=== PATIENT | male | born 1990 | race African-American/Black ===

== ENCOUNTER 2021-07-07 00:16 | Emergency (ER) | payer MEDICAID ==
[~2021-07-07] VITALS: Ht 167.6 cm; Wt 74.0 kg
[2021-07-07 04:33] LABS: CHLORIDE 108 mEq/L (98-107)
[2021-07-07 04:37] LABS: BASOPHILS % 0.8 % (0.0-2.0); EOSINOPHILS % 5.5 % (0.0-5.0); HEMATOCRIT. 43.1 % (42.0-52.0); HEMOGLOBIN. 14.1 g/dL (14.0-18.0); LYMPHOCYTES % 24.2 % (20.0-50.0); MEAN CORPUSCULAR VOLUME 85.6 fL (80.0-94.0); MEAN PLATELET VOLUME 8.1 fl (7.4-10.4); MONOCYTES % 10.1 % (2.0-8.0); NEUTROPHILS % 59.4 % (40.0-76.0); PLATELET 251 x1000/uL (130-400); RED BLOOD CELL COUNT 5.04 mill/uL (4.7-6.1); RED CELL DISTRIBUTION WIDTH 14.9 % (11.6-14.6)
[2021-07-07 04:38] LABS: ETHANOL BLOOD < 10 mg/dL
[2021-07-07 05:51] LABS: *COCAINE SCREEN URINE NEGATIVE (NEGATIVE); METHADONE URINE SCREEN NEGATIVE (NEGATIVE); OPIATES URINE SCREEN NEGATIVE (NEGATIVE); PHENCYCLIDINE URINE SCREEN NEGATIVE (NEGATIVE)
[2021-07-07 05:52] LABS: *AMPHETAMINES SCREEN URINE NEGATIVE (NEGATIVE); *BARBITURATES SCREEN URINE NEGATIVE (NEGATIVE); *BENZODIAZEPINES SCREEN URINE NEGATIVE (NEGATIVE); CANNABINOID URINE SCREEN PRESUMTIVE POSITIVE (NEGATIVE)
[2021-07-07] MEDS: RISPERIDONE 1MG TABLET PO SCH ×2 (09:31→21:15)
[2021-07-07] MEDS: FLUOXETINE HCL 10 MG CAPSULE PO SCH (09:31)
[2021-07-07] MEDS ORDERED: LORAZEPAM 1MG TABLET PO ONE (18:00)
[2021-07-07] MEDS ORDERED: NICOTINE 14MG PATCH TD ONE (19:45)
[2021-07-07] MEDS ORDERED: QUETIAPINE FUMARATE 50MG TABLET PO SCH (21:00)
[2021-07-08] MEDS: FLUOXETINE HCL 10 MG CAPSULE PO SCH (09:35)
[2021-07-08] MEDS: RISPERIDONE 1MG TABLET PO SCH (09:35)
[2021-07-08] MEDS: LORAZEPAM 1MG TABLET PO PRN ×2 (09:35→16:20)
[2021-07-08 18:10] VITALS: BP 119/74
== END 2021-07-08 18:22 ==
LOC: ER 00:16
DX: F33.2 Major depressive disorder, recurrent severe without psychotic features (principal); R45.851 Suicidal ideations; R44.0 Auditory hallucinations; Z59.00 Homelessness unspecified; Z59.5 Extreme poverty; Z63.8 Other specified problems related to primary support group; Z20.822 Contact with and (suspected) exposure to COVID-19; F12.90 Cannabis use, unspecified, uncomplicated; Z75.1 Person awaiting admission to adequate facility elsewhere; I25.2 Old myocardial infarction
CPT/HCPCS: 36415; 80053; 80305; 80307; 80320; 80329; 85025; 93005; 99285; C9803; U0003; U0005; Z7610; G0480